=== PATIENT | male | born 1990 | race Two or more races ===

== ENCOUNTER 2023-06-22 19:39 | Emergency (ER) | payer OTHER ==
[~2023-06-22] VITALS: Ht 175.3 cm; Wt 95.0 kg
[2023-06-22 20:12] VITALS: BP 147/109; PULSE 87; RESP 20; TEMP 99.8; O2SAT 98
[2023-06-22] MEDS ORDERED: KETOROLAC TROMETH 30 MG/ML 1ML VIAL IM ONE (21:45)
[2023-06-22] MEDS ORDERED: CYCLOBENZAPRINE HCL 10 MG TAB PO ONE (23:45)
== END 2023-06-23 01:07 | disposition home or self-care (01) ==
LOC: ER 19:39
DX: S16.1XXA Strain of muscle, fascia and tendon at neck level, initial encounter (principal); R51.9 Headache, unspecified; X58.XXXA Exposure to other specified factors, initial encounter; Y93.89 Activity, other specified; Y92.89 Other specified places as the place of occurrence of the external cause; Y99.8 Other external cause status
CPT/HCPCS: 96372; 99283; J1885